=== PATIENT | female | born 1945 | race Caucasian/White ===

== ENCOUNTER → 2023-07-13 | Emergency (ER) | payer OTHER ==
[~2023-07-13] MED LIST: KCL 20 MEQ/100 mL IVPB 100 ML IV ONE; LORazepam 2 MG/ML VIAL ONE; MORPHINE 2 MG/ML SYR ONE; MORPHINE 4 MG/ML SYR ONE; NA CHLORIDE 0.9% 1,000 ML ONE; ONDANSETRON 4 MG/2 ML VIAL ONE
[2023-07-13 18:37] LABS: Specific Gravity 1.013 (1.005-1.030); Urine Bacteria <20 /HPF (<20); Urine Bilirubin NEGATIVE (Negative); Urine Blood Negative (Negative); Urine Clarity Extremely Turbid (Clear); Urine Color Light-Yellow (Yellow); Urine Glucose NEGATIVE (Negative); Urine Mucus Slight /HPF (None Seen); Urine Protein NEGATIVE (Negative); Urine RBC <5 /HPF (None Seen); Urine Urobilinogen Normal (Normal); Urine pH 7.5 (5.0-7.0)
[2023-07-13 19:04] LABS: Absolute Lymphocytes (CBC) 1.4 K/uL (0.7-4.9); Hematocrit 36.9 % (36.0-45.0); Lymphocytes % 9.8 % (15.3-44.8); MCV 94.3 fL (80-100); MPV 8.6 fL (7.6-11.3); Platelets 360 thou/uL (152-406); RBC Red Blood Cell Count 3.91 M/uL (3.86-4.86)
[2023-07-13 19:12] LABS: Protime INR 1.1
--- NOTE | 2023-07-13 19:17 | RAD REPORT ---
EXAM DESCRIPTION: RAD - Pelvis - 07/13/2023 7:09 pm CLINICAL HISTORY: fall Fall, pain COMPARISON: <Comparisons> FINDINGS: Intratrochanteric fracture is present of the proximal right femur with varus angulation.
--- NOTE | 2023-07-13 19:18 | RAD REPORT ---
EXAM DESCRIPTION: RAD - Femur Right - 07/13/2023 7:09 pm CLINICAL HISTORY: Pain;Deformity COMPARISON: <Comparisons> FINDINGS: Intratrochanteric fracture of the proximal right femur is seen with varus angulation. No d islocation.
--- NOTE | 2023-07-13 19:19 | RAD REPORT ---
EXAM DESCRIPTION: RAD - Chest Single View - 07/13/2023 7:09 pm CLINICAL HISTORY: fall Chest pain. COMPARISON: <Comparisons> FINDINGS: Portable technique limits examination quality. The lungs are emphysematous but grossly clear. The heart is normal in size. No displaced fractures.Sc lerosis noted right humeral head likely chronic. IMPRESSION: COPD.
[2023-07-13 19:24] LABS: Albumin 3.3 g/dL (3.4-5.0); Bilirubin Direct 0.1 mg/dL (0-0.2); Bilirubin Indirect, Calculated 0.2 mg/dL (0.2-0.8); Bilirubin Total 0.3 mg/dL (0.2-1.0); Protein, Total 6.8 g/dL (6.4-8.2); Troponin High Sensitivity 10.7 pg/mL (<58.9)
[2023-07-13 19:33] LABS: Platelet Estimate ADEQ
[2023-07-13 19:34] LABS: Blood Morphology Comment NOT SEEN (NOT SEEN)
--- NOTE | 2023-07-13 20:19 | RAD REPORT ---
EXAM DESCRIPTION: CT - Head C Spine Bryce Hansen - 07/13/2023 7:52 pm CLINICAL HISTORY: Trauma, head and neck injury. Chest, abdomen and pelvis pain. fall COMPARISON: <Comparisons> TECHNIQUE: CT head without contrast. CT cervical spine without contrast with coronal and sagittal reformatted images. CT chest, abdomen and pelvis with IV contrast (approximately 100 mL nonionic IV contrast) with silverman l and sagittal reformatted images of the spine. All CT scans are performed using dose optimization technique as appropriate and may include automated exposure control or mA/KV adjustment according to patient size. FINDINGS: CT HEAD WITHOUT CONTRAST: No intracranial hemorrhage, hydrocephalus or extra-axial fluid collection. No areas of brain edema o r midline shift. Chronic right sphenoid sinusitis. The paranasal sinuses and mastoids are otherwise clear. The calvari um is intact. CT CERVICAL SPINE WITHOUT CONTRAST: No fracture or subluxation. The prevertebral soft tissues are normal in thickness. CT CHEST, ABDOMEN, PELVIS WITH CONTRAST: The lungs are clear.Mild atelectasis in both posterior lung bases.Trace right pleural fluid. No evidence of intra-abdominal visceral injury, free fluid or free air. Sigmoid diverticulosis coli. Fracture of the proximal right femur. Significant compression fractures, appearing acute, involve T10 , T11 and T12 vertebral bodies. Mild canal narrowing caused by this. The T10 fracture appears most si gnificant with vertebral body height loss estimated at 70%. Significant compression fracture sclerosi s in the upper thoracic levels is likely old. IMPRESSION: Fracture proximal right femur. Three level [id number] acute compression fractures spanning T10-12 with mild canal narrowing.
--- NOTE | 2023-07-13 20:43 | ER ---
Nurse's Notes [facility] Name: Leilani Louie Age: 77 yrs Sex: Female : 1945 Arrival Date: 07/13/2023 Time: 17:56 Bed 6 Private MD: Diagnosis: Displaced intertrochanteric fracture of right femur;Fracture of thoracic vertebra-levels T10 thru T12;Fall on same level from slipping, tripping and stumbling with subsequent striking against object Presentation: 07/13 18:00 Chief complaint: EMS states: called due to patient falling into a cabinet and ko1 complaining of right leg/hip pain, Leg is rotated externally. Coronavirus screen: At this time, the client does not indicate any symptoms associated with coronavirus-19. Ebola Screen: No symptoms or risks identified at this time. Initial Sepsis Screen: Does the patient meet any 2 criteria? No. Patient's initial sepsis screen is negative. Does the patient have a suspected source of infection? No. Patient's initial sepsis screen is negative. Risk Assessment: Do you want to hurt yourself or someone else? Patient reports no desire to harm self or others. Onset of symptoms was July 13, 2023. 18:00 Method Of Arrival: EMS: [facility] ko1 18:00 Acuity: LIU 2 ko1 Triage Assessment: 18:53 General: Appears distressed, uncomfortable, Behavior is appropriate for age, anxious. ko1 Pain: Complains of pain in right hip. Historical: - Allergies: 18:53 No Known Allergies; ko1 - PMHx: 18:53 Alzheimer's disease; ko1 - Immunization history:: Adult Immunizations up to date. - Social history:: Smoking status: Patient denies any tobacco usage or history of. Screenin:56 [facility] ED Fall Risk Assessment (Adult) History of falling in the last 3 months, ko1 including since admission Yes- single mechanical fall (1 pt) Confusion or Disorientation Yes (5 pts) Intoxicated or Sedated No (0 pts) Impaired Gait Yes (1 pt) Mobility Assist Device Used Yes (1 pt) Altered Elimination Yes (1 pt) Score/Fall Risk Level 3 or more points = High Risk Oriented to surroundings, Maintained a safe environment, Educated pt \T\ family on fall prevention, incl call for assistance when getting out of bed, Assessed \T\ reinforced patient's understanding of fall precautions, Provided non-skid footwear, Hourly rounding (assess needs \T\ fall precautionary measures) done, Used ambulatory aids as needed (educated on \T\ assisted with), Implemented a Fall Risk Plan of Care, Apply high fall risk patient identification: yellow non skid footwear/ fall signage, Utilized family, sitter, or virtual tube pusher as indicated. Abuse screen: Denies threats or abuse. Denies injuries from another. Nutritional screening: No deficits noted. Tuberculosis screening: No symptoms or risk factors identified. Assessment: 18:56 Neuro: Level of Consciousness is awake, alert, confused, Oriented to person, place, ko1 alzheimers. Cardiovascular: No deficits noted. Respiratory: No deficits noted. GI: No deficits noted. : No deficits noted. EENT: No deficits noted. Derm: No deficits noted. Musculoskeletal: Circulation, motion, and sensation intact. Capillary refill < 3 seconds, in bilateral toes. Range of motion: limited in right leg and right hip Injury Description: Deformity sustained to right leg. Vital Signs: 18:00 BP 163 / 107; Pulse 85; Resp 16; Temp 97; Pulse Ox 100% ; ko1 18:56 BP 137 / 87; Pulse 92; Resp 16; Pulse Ox 99% ; ko1 21:06 BP 144 / 76; Pulse 81; Resp 18; Pulse Ox 100% on R/A; Weight 51 kg; Height 5 ft. 4 in. ;tl4 21:37 BP 126 / 83; Pulse 77; Resp 18; Pulse Ox 95% on R/A; Pain 0/10; tl4 22:13 BP 122 / 69; Pulse 75; Resp 17; Temp 98; Pulse Ox 99% ; rv 21:06 Body Mass Index 19.30 (51.00 kg, 162.56 cm) tl4 21:37 Pain Scale: Adult tl4 ED Course: 17:58 Patient arrived in ED. bd 17:58 Sveta Saavedra PA-C is PHCP. sb4 17:58 Isaac Mai MD is Attending Physician. sb4 18:00 Wilfrido Rain PA is PHCP. sb4 18:01 Laura Prakash, LARRY is Primary Nurse. ko1 18:20 Urinalysis W/Microscopic Sent. ko1 18:53 Triage completed. ko1 18:53 Arm band placed on right wrist. Patient placed in an exam room, on a stretcher, on ko1 hospital monitor, on pulse oximetry, Patient notified of wait time. 18:55 Inserted saline lock: 20 gauge in right antecubital area, using aseptic technique. ko1 Blood collected. 18:55 Samuels cath inserted, using sterile technique, 16 Fr., by il, balloon inflated, to ko1 gravity drainage, urine specimen collected. 18:55 Patient has correct armband on for positive identification. Placed in gown. Bed in low ko1 position. Call light in reach. Side rails up X2. Provided Education on: na. Client placed on continuous cardiac and pulse oximetry monitoring. NIBP monitoring applied. surveillance system monitor on. Door closed. Noise minimized. Lights dimmed. Warm blanket given. Pillow given. 18:59 Basic Metabolic Panel Sent. ko1 18:59 CBC with Diff Sent. ko1 18:59 LFT's Sent. ko1 18:59 Magnesium Sent. ko1 18:59 NT PRO-BNP Sent. ko1 18:59 PT-INR Sent. ko1 18:59 Troponin HS Sent. ko1 19:11 XRAY Chest (1 view) In Process Unspecified. EDMS 19:11 XRAY Pelvis In Process Unspecified. EDMS 19:11 XRAY Femur RIGHT In Process Unspecified. EDMS 19:54 CT Traumagram (Head C Spine CAP W Con) In Process Unspecified. EDMS 20:13 Primary Nurse role handed off by Laura Prakash, LARRY as6 20:16 Alex Herrera, RN is Primary Nurse. rv 21:05 Initiated transfer to [facility], spoke with Rashad Zaragoza. wm 21:11 Pt accepted for transfer to [facility] ER by Jessica Wright per Rashad Zaragoza. 21:12 EMS isn't accepting transfer due to weather conditions. wm 22:12 No provider procedures requiring assistance completed. Patient transferred, IV remains rv in place. Administered Medications: 18:58 Drug: morphine IVP or IV 4 mg IVP once over 4 mins Route: IVP; Infused Over: 4 mins; ko1 Site: right antecubital; 21:38 Follow up: Response: Pain is decreased tl4 18:58 Drug: Ondansetron IVP 4 mg IVP once; over 2 minutes Route: IVP; Site: right antecubital;ko1 21:38 Follow up: Response: No adverse reaction tl4 19:15 Drug: Ativan IVP 0.5 mg IVP once Route: IVP; Site: right antecubital; rv 21:38 Follow up: Response: Anxiety decreased tl4 20:35 Not Given (Physician Discretion): ativan0.5 mg IVP once cp 21:06 Drug: morphine IVP or IV 2 mg IVP once over 4 mins Route: IVP; Infused Over: 4 mins; tl4 Site: right antecubital; 21:37 Follow up: Response: Pain is decreased tl4 21:07 Drug: NS 0.9% IV 1000 ml IV at 75 ml/hr Per protocol; 1000 mL bolus Route: IV; Rate: 75 tl4 ml/hr; Site: right antecubital; Delivery: Primary tubing; 22:11 Follow up: IV Status: Infusion continued upon transfer rv 21:07 Drug: Potassium Chloride IV 20 mEq IV at calculated rate once; administer over 1-2 tl4 hours Route: IV; Rate: calculated rate; Infused Over: 2 hrs; Site: right antecubital; Delivery: Primary tubing; 22:11 Follow up: IV Status: Infusion continued upon transfer rv 22:12 Not Given (not appropriate at this timee): potassiumeffervescent tablet 50 meq PO once; rv dissolve in 4 ounces of water or juice Medication: 22:13 VIS not applicable for this client. rv Outcome: 20:43 ER care complete, transfer ordered by . cp 22:12 Transferred by ground EMS to [facility], Transfer form completed. X-rays sent rv w/ patient. 22:12 Condition: good 22:12 Discharge instructions given to family, Instructed on the need for transfer, 22:14 Patient left the ED. rv Signatures: Dispatcher [employer] EDMS Samia Kaur Corey, PA PA cp Vicente, Ronaldo RN RN rv Sonia Walton Ashby, RN RN as6 Laura Prakash RN RN ko1 Sveta Saavedra, PAValery PA-C sb4 Logdahl, Oziel tl4
--- NOTE | 2023-07-13 20:44 | EDPHYS ---
Physician Documentation [facility] Name: Leilani Louie Age: 77 yrs Sex: Female : 1945 Arrival Date: 07/13/2023 Time: 17:56 Bed 6 Private MD: ED Physician Isaac Mai HPI: 07/13 18:10 This 77 yrs old Female presents to ER via EMS with complaints of Right Upper Leg Pain. cp 18:10 Details of fall: The patient fell from an upright position, while walking, and struck a cp carpeted surface. 18:10 Onset: The symptoms/episode began/occurred 1 hour(s) ago. cp 18:10 EMS reports patient lost her balance and fell onto carpeted floor injuring right hip. cp Patient with PMHX significant for Alzheimer's . Historical: - Allergies: 18:53 No Known Allergies; ko1 - PMHx: 18:53 Alzheimer's disease; ko1 - Immunization history:: Adult Immunizations up to date. - Social history:: Smoking status: Patient denies any tobacco usage or history of. ROS: 18:15 Constitutional: Negative for body aches, chills, fever, poor PO intake, cp 18:15 Eyes: Negative for injury, pain, redness, and discharge, cp 18:15 Cardiovascular: Negative for chest pain, 18:15 Respiratory: Negative for cough, shortness of breath, wheezing, 18:15 Abdomen/GI: Negative for abdominal pain, vomiting, diarrhea, constipation, 18:15 MS/extremity: Positive for injury or acute deformity, decreased range of motion, pain, tenderness, warmth, of the right hip, 18:15 Neuro: Negative for altered mental status, 18:15 All other systems are negative, Exam: 18:20 Constitutional: The patient appears in no acute distress, alert, awake, cp non-diaphoretic, non-toxic, well developed, frail, uncomfortable, 18:20 Head/Face: Normocephalic, atraumatic. cp 18:20 Eyes: Periorbital structures: appear normal, Pupils: equal, round, and reactive to light and accomodation, Conjunctiva: normal, no exudate, no injection, Sclera: no appreciated abnormality, Lids and lashes: appear normal, bilaterally, 18:20 ENT: External ear(s): are unremarkable, Nose: is normal, Mouth: Lips: moist, Oral mucosa: pink and intact, moist, Posterior pharynx: Airway: no evidence of obstruction, patent, 18:20 Neck: C-spine: vertebral tenderness, is not appreciated, crepitus, is not appreciated, 18:20 Chest/axilla: Inspection: normal, Palpation: is normal, no crepitus, no tenderness, 18:20 Cardiovascular: Rate: normal, Rhythm: regular, Edema: is not appreciated, JVD: is not appreciated, 18:20 Respiratory: the patient does not display signs of respiratory distress, Respirations: normal, no use of accessory muscles, no retractions, labored breathing, is not present, Breath sounds: are clear throughout, no decreased breath sounds, no stridor, no wheezing, 18:20 Abdomen/GI: Inspection: abdomen appears normal, Bowel sounds: active, all quadrants, Palpation: abdomen is soft and non-tender, in all quadrants, 18:20 Musculoskeletal/extremity: Extremities: grossly normal except: noted in the right hip: decreased ROM, deformity, pain, ROM: limited passive range of motion, in the right hip, 18:20 Neuro: Orientation: no acute changes, per EMS, to person, situation, Mentation: no acute changes, per EMS, Motor: no focal deficits, Vital Signs: 18:00 BP 163 / 107; Pulse 85; Resp 16; Temp 97; Pulse Ox 100% ; ko1 18:56 BP 137 / 87; Pulse 92; Resp 16; Pulse Ox 99% ; ko1 21:06 BP 144 / 76; Pulse 81; Resp 18; Pulse Ox 100% on R/A; Weight 51 kg; Height 5 ft. 4 in. ;tl4 21:37 BP 126 / 83; Pulse 77; Resp 18; Pulse Ox 95% on R/A; Pain 0/10; tl4 22:13 BP 122 / 69; Pulse 75; Resp 17; Temp 98; Pulse Ox 99% ; rv 21:06 Body Mass Index 19.30 (51.00 kg, 162.56 cm) tl4 21:37 Pain Scale: Adult tl4 MDM: 17:58 Patient medically screened. sb4 20:45 Data reviewed: vital signs, nurses notes, lab test result(s), EKG, radiologic studies, cp CT scan, plain films, and as a result, I will transfer patient. 20:45 Differential diagnosis: closed head injury, contusion, fracture, laceration, multiple cp trauma. Management of patient was discussed with the following: transfer center \\[facility] will [facility] patient w/o provider to provider consult. I considered the following discharge prescriptions or medication management in the emergency department Medications were administered in the Emergency Department. See MAR. Independent interpretation of the following test(s) in the Emergency Department X-Ray: My interpretation is images of right femur show right intertrochanteric fracture. Historians other than the Patient: Family Member: sister. Counseling: I had a detailed discussion with the patient and/or guardian regarding the historical points, exam findings, and any diagnostic results supporting the discharge/admit diagnosis, lab results, radiology results, the need to transfer to another facility, for higher level of care. 07/13 18:04 Order name: Basic Metabolic Panel; Complete Time: 19:30 cp 07/13 19:30 Interpretation: Normal except: K 3.0; GLUC 192; GFR 62. cp 07/13 18:04 Order name: CBC with Diff; Complete Time: 19:39 cp 07/13 19:08 Interpretation: Normal except: WBC 14.70; MIGUEL% 85.4; LYM% 9.8; NEUT A 12.5. cp 07/13 18:04 Order name: LFT's; Complete Time: 19:30 cp 07/13 18:04 Order name: Magnesium; Complete Time: 19:30 cp 07/13 18:04 Order name: NT PRO-BNP; Complete Time: 19:30 cp 07/13 18:04 Order name: PT-INR; Complete Time: 19:30 cp 07/13 18:04 Order name: Troponin HS; Complete Time: 19:30 cp 07/13 18:04 Order name: Urinalysis W/Microscopic; Complete Time: 19:08 cp 07/13 19:34 Order name: Manual Differential; Complete Time: 19:39 EDMS 07/13 18:04 Order name: XRAY Chest (1 view); Complete Time: 19:30 cp 07/13 18:04 Order name: XRAY Pelvis; Complete Time: 19:30 cp 07/13 18:04 Order name: XRAY Femur RIGHT; Complete Time: 19:30 cp 07/13 18:05 Order name: CT Traumagram (Head C Spine CAP W Con); Complete Time: 21:08 cp 07/13 18:04 Order name: EKG; Complete Time: 18:05 cp 07/13 18:04 Order name: Cardiac monitoring; Complete Time: 18:20 cp 07/13 18:04 Order name: EKG - Nurse/Tech; Complete Time: 20:50 cp 07/13 18:04 Order name: IV Saline Lock; Complete Time: 18:59 cp 07/13 18:04 Order name: Labs collected and sent; Complete Time: 18:59 cp 07/13 18:04 Order name: O2 Per Protocol; Complete Time: 18:20 cp 07/13 18:04 Order name: O2 Sat Monitoring; Complete Time: 18:20 cp 07/13 18:04 Order name: Samuels; Complete Time: 18:20 cp Administered Medications: 18:58 Drug: morphine IVP or IV 4 mg IVP once over 4 mins Route: IVP; Infused Over: 4 mins; ko1 Site: right antecubital; 21:38 Follow up: Response: Pain is decreased tl4 18:58 Drug: Ondansetron IVP 4 mg IVP once; over 2 minutes Route: IVP; Site: right antecubital;ko1 21:38 Follow up: Response: No adverse reaction tl4 19:15 Drug: Ativan IVP 0.5 mg IVP once Route: IVP; Site: right antecubital; rv 21:38 Follow up: Response: Anxiety decreased tl4 20:35 Not Given (Physician Discretion): ativan0.5 mg IVP once cp 21:06 Drug: morphine IVP or IV 2 mg IVP once over 4 mins Route: IVP; Infused Over: 4 mins; tl4 Site: right antecubital; 21:37 Follow up: Response: Pain is decreased tl4 21:07 Drug: NS 0.9% IV 1000 ml IV at 75 ml/hr Per protocol; 1000 mL bolus Route: IV; Rate: 75 tl4 ml/hr; Site: right antecubital; Delivery: Primary tubing; 22:11 Follow up: IV Status: Infusion continued upon transfer rv 21:07 Drug: Potassium Chloride IV 20 mEq IV at calculated rate once; administer over 1-2 tl4 hours Route: IV; Rate: calculated rate; Infused Over: 2 hrs; Site: right antecubital; Delivery: Primary tubing; 22:11 Follow up: IV Status: Infusion continued upon transfer rv 22:12 Not Given (not appropriate at this timee): potassiumeffervescent tablet 50 meq PO once; rv dissolve in 4 ounces of water or juice Disposition: 07/14 17:25 Co-signature as Attending Physician, Isaac Mai MD I reviewed the patient's care rt provided by the Advanced Practice Provider and agree with the diagnosis and treatment plan. Disposition Summary: 07/13/23 20:43 Transfer Ordered Notes: Transfer Location: [facility] cp Reason: Higher level of care cp Condition: Stable cp Problem: new cp Symptoms: have improved cp Accepting Physician: DR Erazo(07/13/23 22:14) rv Diagnosis - Displaced intertrochanteric fracture of right femur cp - Fracture of thoracic vertebra - levels T10 thru T12(07/13/23 21:12) cp - Fall on same level from slipping, tripping and stumbling with subsequent striking cp against object Forms: - Medication Reconciliation Form cp - SBAR form cp Signatures: Dispatcher [employer] EDMS Wilfrido Rain PA PA cp Alex Herrera RN RN rv Laura Prakash RN RN koSveta Paris, PA-C PA-C sb4 Isaac Mai MD MD rt JayjayOziel ferraro 4 Corrections: (The following items were deleted from the chart) 07/13 21:12 20:43 Doctor cp cp 21:12 20:43 Fracture of thoracic vertebra cp cp 22:14 21:12 DR Erazo cp rv 07/14 16:46 16:45 This 77 yrs old Female presents to ER via EMS with complaints of Right Upper Leg cp Pain. cp
[2023-07-13 23:44] VITALS: BP 122/69; TEMP 98; O2SAT 99
== END ==
LOC: ER 17:56
DX: S72.141A Displaced intertrochanteric fracture of right femur, initial encounter for closed fracture (principal); S22.079A Unspecified fracture of T9-T10 vertebra, initial encounter for closed fracture; S22.089A Unspecified fracture of T11-T12 vertebra, initial encounter for closed fracture; W01.10XA Fall on same level from slipping, tripping and stumbling with subsequent striking against unspecified object, initial encounter; G30.9 Alzheimer's disease, unspecified; F02.80 Dementia in other diseases classified elsewhere, unspecified severity, without behavioral disturbance, psychotic disturbance, mood disturbance, and anxiety
CPT/HCPCS: 96365; 93005; 85025; 81001; 80048; 36415; 83735; 85610; 80076; 84484; 83880; 70450; 72125; 71260; 74177; 71045; 72170; 73552; 51702; 96375; 99285; Q9967; J3480; J2270; J2405; J7030